=== PATIENT | male | born 1965 | race Caucasian/White ===

== ENCOUNTER → 2025-09-01 09:52 | Outpatient (REF) | payer OTHER, SELFPAY | LOC: RAD 09:52 | PROVIDERS: ATTENDING PHYSICIAN Nurse Practitioner; FAMILY PHYSICIAN Family Medicine | DX: Q23.81 Bicuspid aortic valve (principal); I77.810 Thoracic aortic ectasia | CPT/HCPCS: 71260; Q9967 ==